=== PATIENT | female | born 1945 | race Caucasian/White ===

== ENCOUNTER 2022-02-20 23:14 | Observation (INO) ==
--- NOTE | 2022-02-20 23:22 | DR.AMS ---
HPI Time Seen Time Seen by Provider: 02/20/22 23:21 Complaint Cheif Complaint Doctors Comments: 76 y/o female brought in via EMS for altered mental status. Per EMS, family states it has been persisting all day. Pt is a poor historian. Admits to having a cough for a few days. Not spitting anything up. Doesn't know if she has had a fever. Has had some nausea, but no active vomiting. Has had some diarrhea past few days, not eating or drinking well. Pt with a h/o multiple myeloma, with right skull lytic lesions. Denies shortness of breath, dysuria. Has been having some low grade temps. COVID-19 Coronavirus risk:travel/contact w/high risk person: No Has patient experienced Coronavirus symptoms: Yes Coronavirus symptoms experienced: Fever and Coughing Reviewed Nurses Notes Reviewed: Yes Source History Provided: Patient, Family Member and EMS Mode of Arrival Mode of Arrival: EMS PMH PMH Past Medical History: Yes Past Medical History: Diabetes, Hypertension and Seizures Past Medical History Comment: + h/o multiple myeloma Past Surgical History: Yes Surgical History: Angioplasty/Stents, and Ortho Surgery Family History Family Medical History: Diabetes Mellitus, [place], Heart Failure and Hypertension Social History Does patient currently use any type of tobacco product: No Alcohol Use: None Do you use any recreational Drugs:: No ROS Review of Systems Constitutional: Fever and Weakness Eyes: No Symptoms Reported ENTM: No Symptoms Reported Respiratoy: Non-Productive Cough; negative Short of Breath Cardiovascular: No Symptoms Reported Gastrointestinal/Abdominal: Diarrhea and Nausea Genitourinary: No Symptoms Reported Neurological: Weakness Musculoskeletal: No Symptoms Reported Integumentary: No Symptoms Reported Hematologic/Lymphatic: No Symptoms Reported Psychiatric: No Symptoms Reported All Other Systems: Reviewed and Negative PE Vitals Vital Signs: Temp Pulse Pulse Resp BP BP Pulse Ox 02/21/22 03:30 72 120/58 92 L 02/21/22 03:15 73 95 02/21/22 03:00 74 74 114/85 95 02/21/22 02:45 78 93 L 02/21/22 02:30 74 115/63 93 L 02/21/22 02:15 76 94 L 02/21/22 02:01 79 145/58 92 L 02/21/22 02:00 80 93 L 02/21/22 01:45 80 94 L 02/21/22 01:31 81 154/63 95 02/21/22 01:30 81 93 L 02/21/22 01:15 80 93 L 02/21/22 01:00 77 163/99 95 02/21/22 00:45 82 95 02/21/22 00:34 82 162/65 96 02/20/22 23:15 99.0 F 78 20 157/71 95 11/24/21 21:05 123/54 General Limitations: Altered Mental Status General Appearance: Alert, In No Apparent Distress and Other (+ occasional loose cough) Head Head Exam: Normal Inspection Eyes Eye exam: PERRL and EOMI ENT ENT Exam: Mucous Membranes Moist TM/Canal Exam: Bilateral: Normal Nose Exam: Normal Nose Exam Throat Exam: Normal Inspection Neck Neck Exam: Normal Inspection and Full ROM; negative Tenderness Chest Chest Inspection: Normal Inspection Respiratory Respiratory Exam: negative Accessory Muscle Use and Respiratory Distress Respiratory Exam: Bilateral: Rhonchi (clear with cough) Cardiovascular Cardiovascular Exam: Regular Rate, Normal Rhythm and Normal Heart Sounds Abdominal Exam Abdominal Exam: Normal Inspection, Normal Bowel Sounds and Soft; negative Tenderness Extremities Extremities Exam: Normal Inspection; negative Tenderness and Edema Back Back Exam: Normal Inspection Neurological Neurological Exam: Alert, CN II-XII Intact and Other (+ disoriented to date, place); negative Motor Sensory Deficit Psychological Psychiatric Exam: Normal Affect Skin Skin Exam: Warm and Dry MDM Differential Diagnosis Metabolic: Dehydration and Hyponatremia Structural: CVA and SAH Infectious: Sepsis (bronchitis, pneumonia) and UTI COURSE Treatment Treatment: 76 y/o female sent in for altered mental status. PT not a good historian. Does have a loose cough. W/u initiated. Pt given IV fluids. 0322 - CT of the head with chronic lytic lesions of the R occipital area. No obvious ICH, swelling, shift. U/a without obvious infection. Is spilling some ketones. Has chronic pancytopenia, compared to recent labs, but slightly better. Chemistries with an elevated glucose of 233, and a Cr of 1.67. Last Cr 3 months ago was normal at 0.96. Pt with probable degree of dehydration. CXR with bilateral increased alveolar markings, radiology states no change from last CXR, ? 2 years ago?, and describes as chronic. Pt may have a developing pneumonia. Will cover with IV rocephin. Recommend admission for further evaluation and treatment. Will continue IV hydration, and cover her chest with IV Rocephin. ROR Labs Reviewed Laboratory Results Reviewed?: Yes Result Diagrams: 02/20/22 23:36 02/20/22 23:36 Laboratory: WBC 3.0 X10^3/uL (3.6-10.0) L 02/20/22 23:36 RBC 2.99 X10^6/uL (3.5-5.4) L 02/20/22 23:36 Hgb 10.0 g/dL (12.0-16.0) L 02/20/22 23:36 Hct 29.0 % (36.0-47.0) L 02/20/22 23:36 MCV 96.8 fL (80.0-100.0) 02/20/22 23:36 MCH 33.4 pg (27.0-34.0) 02/20/22 23:36 MCHC 34.5 g/dL (33.0-35.0) 02/20/22 23:36 RDW 14.9 % (11.6-16.5) 02/20/22 23:36 Plt Count 109 X10^3/uL (150.0-450.0) L 02/20/22 23:36 MPV 11.3 fL (7.4-11.0) H 02/20/22 23:36 Neut % (Auto) 84.2 % (42.0-75.0) H 02/20/22 23:36 Lymph % (Auto) 9.1 % (21.0-51.0) L 02/20/22 23:36 Emmons % (Auto) 6.3 % (0.0-13.0) 02/20/22 23:36 Eos % (Auto) 0.3 % (0.9-2.9) L 02/20/22 23:36 Baso % (Auto) 0.1 % (0.2-1.0) L 02/20/22 23:36 Neut # (Auto) 2.5 x10^3/uL (2.2-4.8) 02/20/22 23:36 Lymph # (Auto) 0.3 X10^3/uL (1.3-2.9) L 02/20/22 23:36 Emmons # (Auto) 0.2 x10^3/uL (0.3-0.8) L 02/20/22 23:36 Eos # (Auto) 0.0 x10^3/uL (0.0-0.2) 02/20/22 23:36 Baso # (Auto) 0.0 X10^3/uL (0.0-0.1) 02/20/22 23:36 Absolute Nucleated RBC 0.1 /100WBC 02/20/22 23:36 Sodium 133 mmol/L (136-145) L 02/20/22 23:36 Corrected Sodium 136 mmol/L (136-145) 02/20/22 23:36 Potassium 3.9 mmol/L (3.5-5.1) 02/20/22 23:36 Chloride 96 mmol/L (98-107) L 02/20/22 23:36 Carbon Dioxide 25.5 mmol/L (21-32) 02/20/22 23:36 BUN 49 mg/dL (7-18) H 02/20/22 23:36 Creatinine 1.67 mg/dL (0.55-1.02) H 02/20/22 23:36 Est GFR (MDRD) Af Amer 38 (>60) L 02/20/22 23:36 Est GFR (MDRD) Non-Af 32 (>60) L 02/20/22 23:36 Glucose 233 mg/dL (65-99) H 02/20/22 23:36 Calcium 8.8 mg/dL (8.5-10.1) 02/20/22 23:36 Corrected Calcium 9.6 mg/dL (8.5-10.1) 02/20/22 23:36 Total Bilirubin 0.60 mg/dL (0.2-1.0) 02/20/22 23:36 AST 17 Units/L (15-37) 02/20/22 23:36 ALT 8 Units/L (12-78) L 02/20/22 23:36 Alkaline Phosphatase 99 Units/L (46-116) 02/20/22 23:36 Total Protein 6.7 g/dL (6.4-8.2) 02/20/22 23:36 Albumin 3.0 g/dL (3.4-5.0) L 02/20/22 23:36 Globulin 3.7 g/dL (2.5-4.5) 02/20/22 23:36 Albumin/Globulin Ratio 0.8 Ratio (1.1-2.1) L 02/20/22 23:36 Specimen Type Catherized urine 02/21/22 00:06 Urine Color Pale yellow (YELLOW) 02/21/22 00:06 Urine Appearance Clear (CLEAR) 02/21/22 00:06 Urine pH 5.0 (5.0 - 8.0) 02/21/22 00:06 Ur Specific [place] 1.015 (1.000-1.030) 02/21/22 00:06 Urine Protein 2+ (NEGATIVE) 02/21/22 00:06 Urine Glucose (UA) 3+ (NEGATIVE) 02/21/22 00:06 Urine Ketones 2+ (NEGATIVE) 02/21/22 00:06 Urine Blood 1+ (NEGATIVE) 02/21/22 00:06 Urine Nitrite Negative (NEGATIVE) 02/21/22 00:06 Urine Bilirubin Negative (NEGATIVE) 02/21/22 00:06 Urine Urobilinogen Normal (NORMAL) 02/21/22 00:06 Ur Leukocyte Esterase Negative (NEGATIVE) 02/21/22 00:06 Urine RBC None seen /HPF (0-3) 02/21/22 00:06 Urine WBC None seen /HPF (0-5) 02/21/22 00:06 Ur Squamous Epith Cells Rare /HPF (NEGATIVE) 02/21/22 00:06 Amorphous Sediment 1+ /HPF (NEGATIVE) 02/21/22 00:06 Urine Bacteria Negative /HPF (NEGATIVE) 02/21/22 00:06 Ur Culture Indicated? No/not indicated 02/21/22 00:06 Other Results Comments: see comments under "Course" Opioid Opioid Risk Tool Age (Jose box if 16-45): No History of Preadolescent Sexual Abuse: No Total: 0 Total Score Risk Category: Low Risk Copyright: David TIRADO predicting aberrant behaviors Diagnosis Discharge Problem: Dehydration Altered mental status Qualifiers: Altered mental status type: disorientation Qualified Code(s): R41.0 - Disorientation, unspecified ADDITIONAL NOTES Additional Notes Additional Notes: Covid screen done for pt being admitted. Covid + per lab.
[2022-02-20] MEDS ORDERED: NS 500 ML IV 500 ML IV ONE (23:23)
[2022-02-20 23:31] VITALS: BMI 23.3
[2022-02-20] MEDS ORDERED: NS 1,000 ML IV 1,000 ML ONE (23:31)
[2022-02-20 23:49] LABS: BASOPHILS % (AUTO) 0.1 % (0.2-1.0); EOSINOPHILS % (AUTO) 0.3 % (0.9-2.9); LYMPHOCYTES # (AUTO) 0.3 X10^3/uL (1.3-2.9); LYMPHOCYTES % (AUTO) 9.1 % (21.0-51.0); MEAN CORPUSCULAR HEMOGLOBIN 33.4 pg (27.0-34.0); MEAN CORPUSCULAR HGB CONC 34.5 g/dL (33.0-35.0); MEAN CORPUSCULAR VOLUME 96.8 fL (80.0-100.0); MEAN PLATELET VOLUME 11.3 fL (7.4-11.0); MONOCYTES # (AUTO) 0.2 x10^3/uL (0.3-0.8); MONOCYTES % (AUTO) 6.3 % (0.0-13.0); NEUTROPHILS # (AUTO) 2.5 x10^3/uL (2.2-4.8); NEUTROPHILS % (AUTO) 84.2 % (42.0-75.0); RED BLOOD COUNT 2.99 X10^6/uL (3.5-5.4); RED CELL DISTRIBUTION WIDTH 14.9 % (11.6-16.5)
--- NOTE | 2022-02-21 00:16 | RAD ---
STUDY: FRONTAL VIEW CHESTCOMPARISON: 08/07/2020HISTORY: PT IN ED VIA STRETCHER PER [facility] WITH C/O AMS AND FEVER. PER DAUGHTER PT HAS BEEN CONFUSED FOR SEVERAL DAYS AND FELL MONDAY BUT REFUSED ER VISITFINDINGS:Multifocal alveolar airspace disease remains in the bilateral lower lung zonesNo focal consolidation is seen.The heart size is within normal limits.The mediastinum is unremarkable.There is no evidence of pleural effusion or gross pneumothorax.The trachea is midline.IMPRESSION:Multifocal alveolar airspace disease remains in the bilateral lower lung zones. This does not appear significantly changed from the prior exam and would be classified as chronic airspace disease.Electronically signed by: João Recinos (February 21, 2022 00:15:02)
--- NOTE | 2022-02-21 00:33 | CT ---
HISTORYPT IN ED VIA STRETCHER [facility] WITH C/O AMS AND FEVER. PER DAUGHTER PT HAS BEEN CONFUSED FOR SEVERAL DAYS AND FELL MONDAY BUT PT REFUSEDSTUDYBRAIN W/O CONCOMPARISONFebruary 2021.TECHNIQUEMultiple axial images of the head without contrast. Dose reduction techniques including Automated Exposure Control (AEC) and adjustment of mA and kV were utilized.Contrast: NoneFINDINGSBRAIN PARENCHYMA: No acute hemorrhage, infarct, mass, or mass effect.Ervin-white differentiation is maintained.Scattered white matter chronic small vessel ischemic changes.VENTRICLES/EXTRA-AXIAL SPACES: The cortical sulci and cisterns are prominent. No hydrocephalus or extra-axial fluid collections. There is extensive atherosclerotic disease of the vertebral arteries and cavernous carotid arteries.EXTRACRANIAL STRUCTURES: There is a moth eaten appearance and lytic lesions to the right parietal calvarium. This is consistent with the patient's known multiple myeloma. Visualized paranasal sinuses and mastoids reveals a prominent polyp versus retention cyst in the right maxillary sinus. There is evidence for right globe rupture or theses bulb E type changes. There is partial scleral banding of the superior lateral aspect of the left globe.IMPRESSIONMoth-eaten appearance and lytic lesions of the right high parietal convexity of the calvarium. This is consistent with the patient's known multiple myeloma. This could be the source of the patient's fever and altered mental status. An MRI of the brain with postcontrast imaging is recommended.Electronically signed by: Padma Garrett (February 21, 2022 00:31:58)
[2022-02-21 00:54] LABS: BILIRUBIN,URINE NEGATIVE (NEGATIVE); BLOOD/HEMOGLOBIN,URINE 1+ (NEGATIVE); GLUCOSE, URINE 3+ (NEGATIVE); KETONES,URINE 2+ (NEGATIVE); LEUKOCYTE ESTERASE ,URINE NEGATIVE (NEGATIVE); NITRITES,URINE NEGATIVE (NEGATIVE); PROTEIN,URINE 2+ (NEGATIVE); UROBILINOGEN,URINE NORMAL (NORMAL)
[2022-02-21 01:01] LABS: CALCIUM 8.8 mg/dL (8.5-10.1); CARBON DIOXIDE 25.5 mmol/L (21-32); CREATININE 1.67 mg/dL (0.55-1.02)
[2022-02-21 01:05] LABS: APPEARANCE,URINE CLEAR (CLEAR); COLOR,URINE PALE YELLOW (YELLOW); RBC,URINE NONE SEEN /HPF (0-3)
[2022-02-21 01:06] LABS: BACTERIA,URINE NEGATIVE /HPF (NEGATIVE); SQUAMOUS EPITHELIAL CELL,UR RARE /HPF (NEGATIVE)
[2022-02-21] MEDS ORDERED: ROCEPHIN VIAL 1 GRAM 1 G in NS 100 ML IV 100 ML IV SCH ×2 (03:14→05:00)
[2022-02-21] MEDS ORDERED: ROCEPHIN VIAL 1 GRAM ONE (03:17)
[2022-02-21] MEDS ORDERED: NS 100 ML IV 100 ML ONE (03:17)
[2022-02-21] MEDS ORDERED: ULTRAM PO PRN (04:20)
[2022-02-21] MEDS: D5 NS 1,000 ML IV 1,000 ML IV SCH ×2 (04:37→18:14)
[2022-02-21 05:13] LABS: COR CA(FOR HYPOALB) 9.6 mg/dL (8.5-10.1); TOTAL PROTEIN 6.7 g/dL (6.4-8.2)
[2022-02-21 06:15] LABS: CALCIUM 8.1 mg/dL (8.5-10.1); CARBON DIOXIDE 26.1 mmol/L (21-32); CREATININE 1.26 mg/dL (0.55-1.02)
[2022-02-21] MEDS ORDERED: POTASSIUM CHL 60 MEQ/NS 0.45% 500 ML IV PRN (06:21)
[2022-02-21] MEDS ORDERED: K-RIDER 10 MEQ/NS 100 ML 10 MEQ/100 ML BAG IV PRN (06:21)
[2022-02-21] MEDS ORDERED: KLOR-CON PO PRN (06:21)
[2022-02-21] MEDS ORDERED: POTASSIUM CHL 40 MEQ/NS 0.45% 500 ML IV PRN (06:21)
[2022-02-21] MEDS ORDERED: MICRO K EXTEN CAP 10 MEQ PO PRN (06:21)
[2022-02-21] MEDS ORDERED: POTASSIUM CHLORIDE LIQ 20 MEQ UDC PO PRN (06:21)
[2022-02-21 06:25] LABS: BASOPHILS % (AUTO) 0.2 % (0.2-1.0); EOSINOPHILS % (AUTO) 0.4 % (0.9-2.9); HEMATOCRIT 25.6 % (36.0-47.0); LYMPHOCYTES # (AUTO) 0.2 X10^3/uL (1.3-2.9); MEAN CORPUSCULAR HEMOGLOBIN 34.1 pg (27.0-34.0); MEAN CORPUSCULAR HGB CONC 35.2 g/dL (33.0-35.0); MEAN PLATELET VOLUME 11.4 fL (7.4-11.0); MONOCYTES # (AUTO) 0.2 x10^3/uL (0.3-0.8); MONOCYTES % (AUTO) 9.6 % (0.0-13.0); NEUTROPHILS # (AUTO) 1.9 x10^3/uL (2.2-4.8); NEUTROPHILS % (AUTO) 79.8 % (42.0-75.0); RED BLOOD COUNT 2.64 X10^6/uL (3.5-5.4); RED CELL DISTRIBUTION WIDTH 14.7 % (11.6-16.5); WHITE BLOOD COUNT 2.3 X10^3/uL (3.6-10.0)
[2022-02-21 07:16] LABS: BAND NEUTROPHILS % 2 % (0-10); METAMYELOCYTES % 2; PLATELET MORPHOLOGY COMMENT NORMAL (NORMAL)
[2022-02-21] MEDS: COREG TAB 12.5 MG PO SCH ×2 (08:57→20:16)
[2022-02-21] MEDS: HYZAAR 50/12.5 MG PO SCH (08:58)
[2022-02-21] MEDS: LASIX PO SCH (08:59)
[2022-02-21] MEDS: MICRO K EXTEN CAP 10 MEQ PO SCH (08:59)
[2022-02-21] MEDS ORDERED: LANTUS SC SCH ×2 (09:00→11:00)
[2022-02-21] MEDS ORDERED: PATIENT'S HOME MEDICATION (Losartan-Hydrochlorothiazide 100-25 mg tablet) PO SCH (09:00)
[2022-02-21] MEDS ORDERED: LENALIDOMIDE 10 MG PO SCH (09:00)
[2022-02-21] MEDS: SYNTHROID 112 mcg TAB PO SCH (09:06)
[2022-02-21] MEDS: LEVAQUIN PREMIX IV 750 MG 750 MG/150 ML BAG IV SCH (12:00)
[2022-02-21] MEDS: ZINC SULFATE PO SCH (12:00)
[2022-02-21] MEDS: VITAMIN C PO SCH ×3 (12:00→22:00)
--- NOTE | 2022-02-21 13:09 | DR.H&P ---
H&P - History & Physical for Day of: H&P Date: 02/21/22 - Chief Complaint Chief Complaint: AMS, WEAKNESS, DECREASED ORAL INTAKE, COUGH, FEVER - History of Present Illness History of Present Illness: IS A 76 YEAR OLD PATIENT OF OURS. SHE PRESENTED TO THE ER VIA EMS ON 02/20/22 WITH FAMILY REPORTING THAT PATIENT HAS HAD ALTERED MENTAL STATUS SINCE AWAKENING IN THE MORNING. PATIENT IS A POOR HISTORIAN, BUT DAUGHTER REPORTS THAT PATIENT HAS HAD A NON-PRODUCTIVE COUGH AND LOW GRADE TEMPS FOR THE PAST 2-3 DAYS. PATIENT HAS REPORTEDLY HAD SOME NAUSEA AND DIARRHEA FOR THE PAST FEW DAYS, BUT NO ACTIVE VOMITING. SHE HAS HAD DECREASED ORAL INTAKE. SHE HAS A PMH OF MULTIPLE MYELOMA WITH RIGHT SKULL LYTIC LESIONS, DM II, HTN, AND SEIZURE DISORDER. SHE HAS HAD CARDIAC STENTS AND C- SECTIONS. AUSCULTATION OF LUNG MIRELES REVEALED BILATERAL RHONCHI THROUGHOUT. ON ARRIVAL, VITALS WERE 99.0-78-20-95%-157/71. LABS WERE OBTAINED. WBC 3.0, RBC 2.99, HGB 10.0, HCT 29.0, PLT COUNT 109, SODIUM 133, CHLORIDE 96, BUN 49, CREATININE 1.67, GLUCOSE 233, CALCIUM 8.1, MAGNESIUM 1.3, ALT 8, ALBUMIN 3.0. URINALYSIS OBTAINED AND WAS UNREMARKABLE. COVID-[address] WAS OBTAINED AND REVEALED: Moth-eaten appearance and lytic lesions of the right high parietal convexity of the calvarium. This is consistent with the patient's known multiple myeloma. This could be the source of the patient's fever and altered mental status. An MRI of the brain with post-contrast imaging is recommended. A CHEST XRAY WAS OBTAINED AND REVEALED: Multifocal alveolar airspace disease remains in the bilateral lower lung zones. This does not appear significantly changed from the prior exam and would be classified as chronic airspace disease. IN THE ER, HE WAS GIVEN A NORMAL SALINE 500 ML BOLUS AND ROCEPHIN 1G IV X 1. SHE WAS ADMITTED TO THE HOSPITAL OBSERVATION STATUS FOR FURTHER EVALUATION AND TX OF DEHYDRATION, AMS, COVID-19. SHE WAS STARTED ON D5NS AT 80 ML/HR, ALBUTEROL NEBS QID, BROVANA INHALER BID, LEVAQUIN 750MG IV Q48H, OTBS ACHS, HUMULIN R SLI DING SCALE, ASCORBIC ACID 500MG PO Q6H, ZINC SULFATE 220MG PO DAILY, AND HER HOME MEDICATIONS WERE RESUMED. WE WILL OBTAIN A BRAIN MRI WITH POST CONTRAST IMAGING TODAY PER RADIOLOGIST RECOMMENDATIONS. OTHERWISE, WE PLAN TO FOLLOW-UP WITH AM LABS AND CONTINUE TO MONITOR. TIME SPENT ON CLINICAL ASSESSMENT, REVIEWING LABS AND IMAGING, DECISION MAKING, AND DOCUMENTATION GREATER THAN 75 MINUTES. - Past Medical History Past Medical History: Hypertension, Diabetes, Seizures - Past Surgical History Surgical History: Angioplasty/Stents, , Ortho Surgery - Family History Family Medical History: Diabetes Mellitus, [place], Heart Failure, Hypertension - Social History Does patient currently use any type of tobacco product: No Have you used tobacco products in the last 12 months: No Type of Tobacco Use: None Does any household member use tobacco: No Alcohol Use: None Drug Use: None - Medications Home Medications: oxycodone Allergy (Verified 08/07/20 21:00) Sulfa (Sulfonamide Antibiotics) [SULFA] Allergy (Verified 11/18/21 11:17) CONTINUE taking the following medications carvedilol 12.5 mg PO BID 02/21/22 [History] furosemide 40 mg PO DAILY 02/21/22 [History] insulin glargine [Lantus Solostar U-100 Insulin] 35 unit SUBCUT DAILY 02/21/22 [History] insulin lispro [Humalog KwikPen Insulin] 0 sliding scale dose SUBCUT ACHS PRN 02/21/22 [History] lenalidomide [Revlimid] 10 mg PO DAILY 02/21/22 [History] levothyroxine 112 mcg PO DAILY 02/21/22 [History] losartan-hydrochlorothiazide 1 tab PO DAILY 02/21/22 [History] potassium chloride 10 meq PO DAILY 02/21/22 [History] tramadol 50 mg PO TID PRN 02/21/22 [History] - Review of Systems Constitutional: Fever, Chills, Weakness Eyes: No Symptoms Reported ENT: No Symptoms Reported Respiratory: See HPI, Cough Cardiovascular: No Symptoms Reported Gastrointestinal: See HPI, Nausea, Diarrhea. denies: Vomiting Musculoskeletal: No Symptoms Reported Skin: No Symptoms Reported Neurological: See HPI, Weakness, Confusion - Physical Exam Vital Signs: Temperature 98.8 F Pulse Rate [Left] 69 Pulse Rate 71 Respiratory Rate 20 Blood Pressure [Left Arm] 118/59 Blood Pressure 128/59 O2 Sat by Pulse Oximetry 98 Oriented: Not Oriented Eyes: Normal Ear: Normal Nose: Normal Throat: Normal Respiratory: Rhonchi Throughout Cardiovascular: Normal : Normal Auscultation: Bowel Sounds: Normal Palpation: Normal Tenderness: Normal Skin: Decreased Turgur Musculoskeletal: Normal Psychiatric: Normal Mood Description: Calm Affect: Normal Speech Pattern: Inappropriate - Assessment/Plan (1) Dehydration Status: Acute Plan: D5NS AT 80 ML/HR, ALBUTEROL NEBS QID, BROVANA INHALER BID, LEVAQUIN 750MG IV Q48H, OTBS ACHS, HUMULIN R SLIDING SCALE, ASCORBIC ACID 500MG PO Q6H, ZINC SULFATE 220MG PO DAILY, AND HER HOME MEDICATIONS WERE RESUMED. (2) Pneumonia due to COVID-19 virus Status: Acute (3) Altered mental status Qualifiers: Altered mental status type: disorientation Qualified Code(s): R41.0 - Disorientation, unspecified Status: Acute Plan: WE WILL OBTAIN A BRAIN MRI WITH POST CONTRAST IMAGING TODAY PER RADIOLOGIST RECOMMENDATIONS. (4) History of multiple myeloma Status: Chronic - Allergies Allergies/Adverse Reactions: Allergies Allergy/AdvReac Type Severity Reaction Status Date / Time oxycodone Allergy Verified 08/07/20 21:00 Sulfa (Sulfonamide Allergy Verified 11/18/21 11:17 Antibiotics) [SULFA]
--- NOTE | 2022-02-21 13:42 | MRI ---
HISTORYMULTIPLE MYELOMA, DEHYDRATION, AMSSTUDYBRAIN W W/O CONCOMPARISONHead CT dated 02/20/2022TECHNIQUEMultiplanar multi sequences images through the brain were performed with and without contrastFINDINGSThe ventricles are normal in size and symmetric. There is no evidence of an acute infarct. No focal areas of restricted diffusion. There is no evidence of intra or extra-axial fluid collections, there is normal midline anatomy. No sellar masses. The cervicocranial junction is unremarkable, no nasopharyngeal massesAfter, the administration of contrast there is no evidence of abnormal intraparenchymal enhancement. The main arterial and venous flow voids are present, no abnormal signal in the mastoid cells.There is an abnormal right ocular globe there appears small with irregular area in the posterior chamber as well as an inferior area of low signal on the weighted T2 weighted images probably hemorrhage. No abnormal enhancement at the level.FLAIR images demonstrate mild patchy periventricular white matter changes with few subcortical areas of high signal.There is a focal irregular patchy area of enhancement in the superior parietal bone that correspond with an irregular lytic lesion on prior CT. There is an enhancing mass like area extending at the level of the defect better seen in the coronal images measuring in length 5.3 centimeters and in thickness 8 millimeters, there is mild mass effect in the superior sagittal sinus without compression, there is a mucous retention cysts in the left maxillary sinus.IMPRESSIONFocal aggressive left superior parietal bone lesion near to the midline with an associated enhancing soft tissue area without mass effect in the brain, no evidence of restricted diffusion to suggest and abscess formation differential include multiple myeloma lesion versus bone metastasis. Clinical correlation is recommended.No acute infarct, no abnormal intraparenchymal enhancing lesions.Abnormal right ocular globe with old hemorrhagePeriventricular and subcortical white matter changes likely microvascular ischemic disease.Electronically signed by: Leandra Daniel (February 21, 2022 13:40:52)
[2022-02-21] MEDS: BROVANA IN SCH ×2 (16:40→21:07)
[2022-02-21] MEDS: PROVENTIL NEB TX 0.083% 2.5MG/ 3ML NEB SCH ×3 (16:41→21:08)
[2022-02-21] MEDS: K-DUR TAB 20 MEQ PO PRN (17:10)
[2022-02-21] MEDS: MAGNESIUM SULFATE 1 GRAM/100 mL PREMIX 1 G/100 ML BAG IV PRN ×4 (17:11→23:45)
[2022-02-22] MEDS ORDERED: ROCEPHIN VIAL 1 GRAM 1 G in NS 100 ML IV 100 ML IV SCH (05:00)
[2022-02-22] MEDS ORDERED: D50W ABBOJECT SYR IV ONE (05:38)
[2022-02-22] MEDS: D5 NS 1,000 ML IV 1,000 ML IV SCH ×2 (05:39→19:05)
[2022-02-22] MEDS: VITAMIN C PO SCH ×4 (05:39→22:01)
[2022-02-22] MEDS ORDERED: D50W ABBOJECT SYR ONE ×2 (05:41→05:44)
--- NOTE | 2022-02-22 06:05 | RAD ---
HISTORYShortness of breathSTUDYChest AP [id number]/2022FINDINGSThe heart is mildly enlarged. No definite congestive heart failure is noted. The aorta is calcified. The javed are normal. Lungs are well inflated. Bibasilar infiltrates are improved. Upper lung rivera remain clear no pleural effusion or pneumothorax identified. Bony thorax is unremarkable.IMPRESSIONMild cardiomegaly without congestive heart failureImproving bibasilar infiltratesElectronically signed by: RODGER SANCHEZ (February 22, 2022 06:05:00)
[2022-02-22 06:08] LABS: BASOPHILS % (AUTO) 0.1 % (0.2-1.0); HEMATOCRIT 25.2 % (36.0-47.0); LYMPHOCYTES # (AUTO) 0.3 X10^3/uL (1.3-2.9); LYMPHOCYTES % (AUTO) 8.2 % (21.0-51.0); MEAN CORPUSCULAR HEMOGLOBIN 34.3 pg (27.0-34.0); MEAN CORPUSCULAR HGB CONC 35.8 g/dL (33.0-35.0); MEAN CORPUSCULAR VOLUME 95.9 fL (80.0-100.0); MONOCYTES # (AUTO) 0.5 x10^3/uL (0.3-0.8); MONOCYTES % (AUTO) 12.2 % (0.0-13.0); NEUTROPHILS # (AUTO) 3.1 x10^3/uL (2.2-4.8); NEUTROPHILS % (AUTO) 78.5 % (42.0-75.0); RED BLOOD COUNT 2.63 X10^6/uL (3.5-5.4); RED CELL DISTRIBUTION WIDTH 14.5 % (11.6-16.5); WHITE BLOOD COUNT 3.9 X10^3/uL (3.6-10.0)
[2022-02-22 06:28] LABS: BLOOD UREA NITROGEN 21 mg/dL (7-18); CALCIUM 7.9 mg/dL (8.5-10.1); CARBON DIOXIDE 25.3 mmol/L (21-32); CHLORIDE 102 mmol/L (98-107); CREATININE 0.91 mg/dL (0.55-1.02); SODIUM 137 mmol/L (136-145); eGFR NON BLACK RACES > 60 (>60)
[2022-02-22 06:29] LABS: CKMB % 1.6 % (<4); CREATINE KINASE 69 Units/L (26-192); CREATINE KINASE MB 1.1 ng/mL (0-4.0); MAGNESIUM 2.3 mg/dL (1.7-2.9)
[2022-02-22] MEDS: K-DUR TAB 20 MEQ PO PRN ×2 (06:48→15:45)
[2022-02-22] MEDS ORDERED: REMDESIVIR 200 MG in NS 250 ML IV 250 ML IV ONE (08:52)
[2022-02-22] MEDS ORDERED: LANTUS SC SCH ×2 (09:00→12:00)
[2022-02-22] MEDS ORDERED: PHARMACY CONSULT - LOVENOX XX SCH (09:00)
[2022-02-22] MEDS ORDERED: PHARMACY CONSULT - IVERMECTIN XX SCH (09:00)
[2022-02-22] MEDS: PROVENTIL NEB TX 0.083% 2.5MG/ 3ML NEB SCH ×4 (09:01→20:45)
[2022-02-22] MEDS: BROVANA IN SCH ×2 (09:01→20:45)
[2022-02-22] MEDS: COREG TAB 12.5 MG PO SCH ×2 (10:44→22:01)
[2022-02-22] MEDS: SOLU-Medrol 40 MG VIAL IVP SCH ×3 (10:45→22:03)
[2022-02-22] MEDS: LUVOX PO SCH ×2 (10:45→21:26)
[2022-02-22] MEDS: LASIX PO SCH (10:45)
[2022-02-22] MEDS: MICRO K EXTEN CAP 10 MEQ PO SCH (10:45)
[2022-02-22] MEDS: PEPCID TAB 40 MG PO SCH ×2 (10:45→22:01)
[2022-02-22] MEDS: HYZAAR 50/12.5 MG PO SCH (10:45)
[2022-02-22] MEDS: IVERMECTIN PO SCH (10:46)
[2022-02-22] MEDS: SYNTHROID 112 mcg TAB PO SCH (10:46)
[2022-02-22] MEDS: VITAMIN D3 125 mcg (5,000 UNITS) PO SCH (10:46)
[2022-02-22] MEDS: VITAMIN A PO SCH (10:46)
[2022-02-22] MEDS: ELIQUIS PO SCH ×2 (10:46→21:26)
[2022-02-22] MEDS: ZINC SULFATE PO SCH (10:47)
--- NOTE | 2022-02-22 12:56 | PCM.PROG ---
Progress Note - Progress Note for Day of Date of Exam: 02/22/22 - Subjective Subjective: IS CURRENTLY OBSERVATION STATUS FOR TREATMENT OF DEHYDRATION, PNEUMONIA DUE TO COVID-19, AND AMS. SHE HAS A PMH OF MULTIPLE MYELOMA WITH RIGHT SKULL LYTIC LESION. SHE CONTINUES TO HAVE A NON-PRODUCTIVE COUGH AND WEAKNESS. HER APPETITE HAS BEEN DECREASED, BUT SHE DENIES NAUSEA OR VOMITING THIS MORNING. THE HIGHEST THAT HER TEMPERATUR GOT THROUGHOUT THE NIGHT WAS 99.8. SHE HAS BEEN ON ROOM AIR. STAFF AND FAMILY DENY EVENTS THROUGHOUT THE NIGHT. ON EXAMINATION TODAY, HEART IS REGULAR IN RATE AND RHYTHM. BILATERAL LUNGS NOTED WITH DIMINISHED LUNG SOUNDS THROUGHOUT. ABDOMEN IS ROUND, SOFT, AND NON-TENDER WITH NORMAL BOWEL SOUNDS NOTED IN ALL QUADRANTS. TRACE LOWER EXTREMITY EDEMA NOTED. HER VITALS THIS MORNING ARE: 98.1-69-20-98%-156/67. LABS WERE OBTAINED. WBC 3.9, RBC 2.63, HGB 9.0, HCT 25.2, PLT COUNT 89, D-DIMER 11.84, SODIUM 137, POTASSIUM 2.8, CHLORIDE 102, BUN 21, CREATININE 0.91, GLUCOSE 124, CALCIUM 7.9, MAGNESIUM 2.3, CRP 68.30, BNP 791. STAFF REPORTS THAT SHE DID HAVE A DROP IN GLUCOSE TO 45 ON MORNING LABS TODAY. SHE HAD LANTUS 28 UNITS LAST NIGHT. A CHEST XRAY WAS OBTAINED THIS MORNING AND REVEALED: Mild cardiomegaly without congestive heart failure. Improving bibasilar infiltrates. A BRAIN MRI WAS OBTAINED YESTERDAY AND REVEALED: Focal aggressive left superior parietal bone lesion near to the midline with an associated enhancing soft tissue area without mass effect in the brain, no evidence of restricted diffusion to suggest and abscess formation differential include multiple myeloma lesion versus bone metastasis. Clinical correlation is recommended. No acute infarct, no abnormal intraparenchymal enhancing lesions. Abnormal right ocular globe with old hemorrhage. 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 WE WILL PASS THESE RESULTS ON TO HER ONCOLOGIST. SHE IS CURRENTLY RECEIVING D5NS AT 80 ML/HR, REMDESIVIR 100MG IV DAILY, ALBUTEROL NEBS QID, BROVANA INHALER BID, LEVAQUIN 750MG IV Q48H, OTBS ACHS, HUMULIN R SLIDING SCALE, ASCORBIC ACID 500MG PO Q6H, ZINC SULFATE 220MG PO DAILY, AND HER HOME MEDICATIONS WERE RESUMED. TODAY, WE WILL ADD ELIQUIS 5MG PO BID, FLUVOXAMINE 50MG PO BID, IVERMECTIN 30MG PO DAILY, SOLU-MEDROL 40MG IV Q8H, AND VITAMIN A 10,000 UNITS PO DAILY. WE WILL DECREASE LANTUS TO 10 UNITS SQ DAILY. OTHERWISE, WE PLAN TO FOLLOW-UP WITH AM LABS AND CHEST XRAY AND CONTINUE TO MONITOR. TIME SPENT ON CLINICAL ASSESSMENT, REVIEWING LABS AND IMAGING, DECISION MAKING, AND DOCUMENTATION GREATER THAN 45 MINUTES. - Past Medical Family Social History Past Med/Fam/Surg Hx: No changes since H&P Allergies: Allergies oxycodone Allergy (Verified 08/07/20 21:00) Sulfa (Sulfonamide Antibiotics) [SULFA] Allergy (Verified 11/18/21 11:17) - Review of Systems ROS: No change since H&P - Vital Signs and I&O's Vital Signs: Temperature 98.2 F Pulse Rate [Left] 66 Pulse Rate 66 Respiratory Rate 20 Blood Pressure [Left Arm] 180/75 Blood Pressure 128/59 O2 Sat by Pulse Oximetry 97 Intake and Output: Intake & Output 02/20/22 02/21/22 02/22/22 02/23/22 11:59 11:59 11:59 11:59 Intake Total 660 / 660 2119 Balance 660 / 660 2119 - Physical Exam Oriented: Person Eyes: Normal Ear: Normal Nose: Normal Throat: Normal Respiratory: Generalized, Diminished Cardiovascular: Normal : Normal Auscultation: Bowel Sounds: Normal Palpation: Normal Tenderness: Normal Skin: Decreased Turgur Musculoskeletal: Normal Psychiatric: Normal Mood Description: Calm Affect: Normal Speech Pattern: Clear, Appropriate - Laboratory and Diagnostics Result Diagrams: 02/22/22 05:24 02/22/22 08:50 Labs: Laboratory WBC 3.9 X10^3/uL (3.6-10.0) 02/22/22 05:24 RBC 2.63 X10^6/uL (3.5-5.4) L 02/22/22 05:24 Hgb 9.0 g/dL (12.0-16.0) L 02/22/22 05:24 Hct 25.2 % (36.0-47.0) L 02/22/22 05:24 MCV 95.9 fL (80.0-100.0) 05/10/22 05:24 MCH 34.3 pg (27.0-34.0) H 02/22/22 05:24 MCHC 35.8 g/dL (33.0-35.0) H 02/22/22 05:24 RDW 14.5 % (11.6-16.5) 02/22/22 05:24 Plt Count 89 X10^3/uL (150.0-450.0) L 02/22/22 05:24 Plt Count Comment Decreased (ADEQUATE) A 02/21/22 05:23 MPV 11.0 fL (7.4-11.0) 02/22/22 05:24 Neut % (Auto) 78.5 % (42.0-75.0) H 02/22/22 05:24 Lymph % (Auto) 8.2 % (21.0-51.0) L 02/22/22 05:24 [place] % (Auto) 12.2 % (0.0-13.0) 02/22/22 05:24 Eos % (Auto) 1.0 % (0.9-2.9) 02/22/22 05:24 Baso % (Auto) 0.1 % (0.2-1.0) L 02/22/22 05:24 Neut # (Auto) 3.1 x10^3/uL (2.2-4.8) 02/22/22 05:24 Lymph # (Auto) 0.3 X10^3/uL (1.3-2.9) L 02/22/22 05:24 [place] # (Auto) 0.5 x10^3/uL (0.3-0.8) 02/22/22 05:24 Eos # (Auto) 0.0 x10^3/uL (0.0-0.2) 02/22/22 05:24 Baso # (Auto) 0.0 X10^3/uL (0.0-0.1) 02/22/22 05:24 Absolute Nucleated RBC 0.1 /100WBC 02/22/22 05:24 Total Counted 50 02/21/22 05:23 Neutrophils % (Manual) 82 % (39-76) H 02/21/22 05:23 Band Neutrophils % 2 % (0-10) 02/21/22 05:23 Lymphocytes % (Manual) 12 % (13-43) L 02/21/22 05:23 Monocytes % (Manual) 2 % (4-9) L 02/21/22 05:23 Metamyelocytes % 2 02/21/22 05:23 Plt Morphology Comment Normal (NORMAL) 02/21/22 05:23 RBC Morphology Normal (NORMAL) 02/21/22 05:23 ESR 47 MM/HOUR (0-20) H 02/21/22 11:36 D-Dimer 11.84 ug/ml (0.0-0.57) H* 02/22/22 05:24 Sodium 137 mmol/L (136-145) 02/22/22 05:24 Corrected Sodium TNP 02/22/22 05:24 Potassium 3.3 mmol/L (3.5-5.1) L 02/22/22 08:50 Chloride 102 mmol/L (98-107) 02/22/22 05:24 Carbon Dioxide 25.3 mmol/L (21-32) 02/22/22 05:24 BUN 21 mg/dL (7-18) H 02/22/22 05:24 Creatinine 0.91 mg/dL (0.55-1.02) 02/22/22 05:24 Est GFR (MDRD) Af Amer > 60 (>60) 02/22/22 05:24 Est GFR (MDRD) Non-Af > 60 (>60) 02/22/22 05:24 Glucose 45 mg/dL (65-99) L* 02/22/22 05:24 POC Glucose (mg/dL) 124 mg/dL (65-99) H 02/22/22 12:27 Calcium 7.9 mg/dL (8.5-10.1) L 02/22/22 05:24 Corrected Calcium 9.6 mg/dL (8.5-10.1) 02/20/22 23:36 Magnesium 2.3 mg/dL (1.7-2.9) 02/22/22 05:24 Total Bilirubin 0.60 mg/dL (0.2-1.0) 02/20/22 23:36 AST 17 Units/L (15-37) 02/20/22 23:36 ALT 8 Units/L (12-78) L 02/20/22 23:36 Alkaline Phosphatase 99 Units/L (46-116) 02/20/22 23:36 Creatine Kinase 69 Units/L (26-192) 02/22/22 05:24 CK-MB (CK-2) 1.1 ng/mL (0-4.0) 02/22/22 05:24 CK/CKMB % Calc 1.6 % (<4) 02/22/22 05:24 Troponin I High Sens 39.3 ng/L (4.0-60.0) 02/22/22 05:24 C-Reactive Protein 68.30 mg/L (0-3.0) H 02/22/22 05:24 B-Natriuretic Peptide 791 pg/mL (0-79) H* 02/22/22 05:24 Total Protein 6.7 g/dL (6.4-8.2) 02/20/22 23:36 Albumin 3.0 g/dL (3.4-5.0) L 02/20/22 23:36 Globulin 3.7 g/dL (2.5-4.5) 02/20/22 23:36 Albumin/Globulin Ratio 0.8 Ratio (1.1-2.1) L 02/20/22 23:36 Specimen Type Catherized urine 02/21/22 00:06 Urine Color Pale yellow (YELLOW) 02/21/22 00:06 Urine Appearance Clear (CLEAR) 02/21/22 00:06 Urine pH 5.0 (5.0 - 8.0) 02/21/22 00:06 Ur Specific [place] 1.015 (1.000-1.030) 02/21/22 00:06 Urine Protein 2+ (NEGATIVE) 02/21/22 00:06 Urine Glucose (UA) 3+ (NEGATIVE) 02/21/22 00:06 Urine Ketones 2+ (NEGATIVE) 02/21/22 00:06 Urine Blood 1+ (NEGATIVE) 02/21/22 00:06 Urine Nitrite Negative (NEGATIVE) 02/21/22 00:06 Urine Bilirubin Negative (NEGATIVE) 02/21/22 00:06 Urine Urobilinogen Normal (NORMAL) 02/21/22 00:06 Ur Leukocyte Esterase Negative (NEGATIVE) 02/21/22 00:06 Urine RBC None seen /HPF (0-3) 02/21/22 00:06 Urine WBC None seen /HPF (0-5) 02/21/22 00:06 Ur Squamous Epith Cells Rare /HPF (NEGATIVE) 02/21/22 00:06 Amorphous Sediment 1+ /HPF (NEGATIVE) 02/21/22 00:06 Urine Bacteria Negative /HPF (NEGATIVE) 02/21/22 00:06 Ur Culture Indicated? No/not indicated 02/21/22 00:06 SARS-CoV-2 (PCR) Positive (NEGATIVE) A 02/21/22 12:37 SARS-CoV-2 Antigen Positive (NEGATIVE) A 02/21/22 16:15 - Plan (1) Dehydration Status: Acute Plan: D5NS AT 80 ML/HR, ALBUTEROL NEBS QID, BROVANA INHALER BID, LEVAQUIN 750MG IV Q48H, OTBS ACHS, HUMULIN R SLIDING SCALE, ASCORBIC ACID 500MG PO Q6H, ZINC SULFATE 220MG PO DAILY, ELIQUIS 5MG PO BID, FLUVOXAMINE 50MG PO BID, IVERMECTIN 30MG PO DAILY, SOLU-MEDROL 40MG IV Q8H, VITAMIN A 10,000 UNITS PO DAILY, AND HER HOME MEDICATIONS WERE RESUMED. (2) Pneumonia due to COVID-19 virus Status: Acute (3) Altered mental status Status: Acute Qualifiers: Altered mental status type: disorientation Qualified Code(s): R41.0 - Disorientation, unspecified Plan: WE WILL OBTAIN A BRAIN MRI WITH POST CONTRAST IMAGING TODAY PER RADIOLOGIST RECOMMENDATIONS. (4) History of multiple myeloma Status: Chronic
--- NOTE | 2022-02-22 13:54 | CT ---
HISTORYCOVID+, SOB, ELEVATED D-DIMERSTUDYCTA CHESTCOMPARISONNoneTECHNIQUEM pulmonary angiogram protocol was performed after the administration of contrast. 3D MIPS images were performed.CT scan was performed following ALARA (As low as Reasonably Achievable).Coronal and Sagittal reformatted images were performed..FINDINGSThe thyroid gland is not well seen. There is no evidence of axillary or dominant pretracheal adenopathy,there is interval decrease in size of sub carinal lymph node measuring in the current study in short axis 7 millimeters. There is no pleural or pericardial effusions, no adrenal masses, the spleen is nonenlarged,the stomach is not distended. No evidence of pulmonary embolism. The ascending aorta measures approximately 3 centimetersLung windows there is new ground-glass and interstitial radiopacities involving the left lower lobe, patchy in the right lower lobe as well as the inferior left upper lobe consistent with active viral pneumonia, there is also a left perihilar ground-glass radiopacities.Bone windows there is severe osteopenia, there are lytic lesions involving multiple vertebral bodies extending into the pedicles suspicious for metastatic disease a lesion is seen at C5 vertebral body, T2 vertebral body with destruction of the posterior cortex, there is also a focal lesions at T4 with extension along the pedicle, there is a pathologic fracture of T12 with retropulsion of approximately 4 millimeters and mild narrowing of the spinal canal, there is also vertebra plana of L1 with a pathologic fracture and a posterior convex border with 5 millimeters retropulsion and moderate narrowing of the spinal canal.IMPRESSIONNo radiographic evidence of pulmonary embolism.New ground-glass and interstitial radiopacities involving the lower lobes and the left upper lobe left more than rightMultiple lytic bone lesions with a pathologic fracture of T12 and L1 and retropulsion of both of approximately 4 millimeters of L1 and moderate narrowing of the spinal canal. Consider metastatic bone or multiple myelomaElectronically signed by: Leandra Daniel (February 22, 2022 13:52:38)
[2022-02-22] MEDS: NovoLIN R (or HumuLIN R) SC PRN ×2 (17:02→22:07)
[2022-02-22 21:26] LABS: ALANINE AMINOTRANSFERASE 7 Units/L (12-78); ALBUMIN 2.3 g/dL (3.4-5.0); ALKALINE PHOSPHATASE 89 Units/L (46-116); ASPARTATE AMINO TRANSFERASE 16 Units/L (15-37); COR CA(FOR HYPOALB) 9.3 mg/dL (8.5-10.1); TOTAL PROTEIN 5.6 g/dL (6.4-8.2)
[2022-02-22 22:39] LABS: ALBUMIN 2.4 g/dL (3.4-5.0); COR CA(FOR HYPOALB) 9.4 mg/dL (8.5-10.1); TOTAL PROTEIN 5.7 g/dL (6.4-8.2)
[2022-02-23 04:54] LABS: BASOPHILS % (AUTO) 0.2 % (0.2-1.0); HEMATOCRIT 27.6 % (36.0-47.0); HEMOGLOBIN 9.5 g/dL (12.0-16.0); LYMPHOCYTES # (AUTO) 0.2 X10^3/uL (1.3-2.9); MEAN CORPUSCULAR HEMOGLOBIN 33.4 pg (27.0-34.0); MEAN CORPUSCULAR HGB CONC 34.5 g/dL (33.0-35.0); MEAN CORPUSCULAR VOLUME 96.8 fL (80.0-100.0); MEAN PLATELET VOLUME 11.4 fL (7.4-11.0); MONOCYTES # (AUTO) 0.1 x10^3/uL (0.3-0.8); MONOCYTES % (AUTO) 3.2 % (0.0-13.0); NEUTROPHILS % (AUTO) 89.6 % (42.0-75.0); RED BLOOD COUNT 2.85 X10^6/uL (3.5-5.4); RED CELL DISTRIBUTION WIDTH 14.3 % (11.6-16.5); WHITE BLOOD COUNT 3.3 X10^3/uL (3.6-10.0)
[2022-02-23 05:04] LABS: ALANINE AMINOTRANSFERASE 8 Units/L (12-78); ALBUMIN 2.2 g/dL (3.4-5.0); ALKALINE PHOSPHATASE 96 Units/L (46-116); ASPARTATE AMINO TRANSFERASE 12 Units/L (15-37); BLOOD UREA NITROGEN 16 mg/dL (7-18); CALCIUM 7.3 mg/dL (8.5-10.1); CARBON DIOXIDE 21.4 mmol/L (21-32); CHLORIDE 103 mmol/L (98-107); COR CA(FOR HYPOALB) 8.7 mg/dL (8.5-10.1); COR NA(FOR HYPERGLY) 139 mmol/L (136-145); CREATININE 0.96 mg/dL (0.55-1.02); SODIUM 136 mmol/L (136-145); TOTAL PROTEIN 5.7 g/dL (6.4-8.2); eGFR NON BLACK RACES > 60 (>60)
[2022-02-23] MEDS: VITAMIN C PO SCH ×4 (06:04→23:01)
[2022-02-23] MEDS: NovoLIN R (or HumuLIN R) SC PRN ×2 (06:05→16:36)
[2022-02-23] MEDS: SOLU-Medrol 40 MG VIAL IVP SCH ×3 (06:05→21:09)
--- NOTE | 2022-02-23 06:08 | RAD ---
HISTORYShortness of breathSTUDYChest AP [id number]/10/2022 chest x-ray and CTA chestFINDINGSHeart remains enlarged. No congestive heart failure is noted. Right lung and left upper lung rivera appear clear. Infiltrate remains in the retrocardiac area of the left lower lobe. There is a focus of subsegmental atelectasis in the lingula. No pleural effusions are identified. There is a compression fracture of T10.IMPRESSIONNo change mild cardiomegaly without congestive heart failureNo change left lower lobe retrocardiac infiltrateFocus of subsegmental atelectasis lingulaBarely visible compression fracture [id number] signed by: RODGER SANCHEZ (February 23, 2022 06:06:49)
[2022-02-23] MEDS: IVERMECTIN PO SCH (08:01)
[2022-02-23] MEDS: LASIX PO SCH (08:01)
[2022-02-23] MEDS: MICRO K EXTEN CAP 10 MEQ PO SCH (08:01)
[2022-02-23] MEDS: ELIQUIS PO SCH (08:02)
[2022-02-23] MEDS: LUVOX PO SCH (08:02)
[2022-02-23] MEDS: COREG TAB 12.5 MG PO SCH ×2 (08:02→20:05)
[2022-02-23] MEDS: HYZAAR 50/12.5 MG PO SCH (08:02)
[2022-02-23] MEDS: VITAMIN D3 125 mcg (5,000 UNITS) PO SCH (08:03)
[2022-02-23] MEDS: ZINC SULFATE PO SCH (08:03)
[2022-02-23] MEDS: VITAMIN A PO SCH (08:03)
[2022-02-23] MEDS: SYNTHROID 112 mcg TAB PO SCH (08:03)
[2022-02-23] MEDS: PEPCID TAB 40 MG PO SCH ×2 (08:03→20:05)
[2022-02-23] MEDS: REMDESIVIR 100 MG in NS 250 ML IV 250 ML IV SCH (08:32)
[2022-02-23] MEDS: BROVANA IN SCH ×2 (08:35→20:40)
[2022-02-23] MEDS: PROVENTIL NEB TX 0.083% 2.5MG/ 3ML NEB SCH ×4 (08:41→20:40)
[2022-02-23] MEDS: NS 1,000 ML IV 1,000 ML IV SCH ×2 (10:01→23:19)
[2022-02-23] MEDS: LEVAQUIN PREMIX IV 750 MG 750 MG/150 ML BAG IV SCH (10:01)
[2022-02-23] MEDS ORDERED: LANTUS SC ONE (10:43)
--- NOTE | 2022-02-23 12:49 | PCM.PROG ---
Progress Note - Progress Note for Day of Date of Exam: 02/23/22 - Subjective Subjective: IS CURRENTLY OBSERVATION STATUS FOR TREATMENT OF DEHYDRATION, PNEUMONIA DUE TO COVID-19, AND AMS. SHE HAS A PMH OF MULTIPLE MYELOMA WITH RIGHT SKULL LYTIC LESION. SHE CONTINUES TO HAVE A NON-PRODUCTIVE COUGH AND WEAKNESS. HER APPETITE HAS BEEN DECREASED, BUT SHE HAS MANAGED TO EAT A DECENT AMOUNT SINCE YESTERDAY. THE HIGHEST THAT HER TEMPERATUR GOT THROUGHOUT THE NIGHT WAS 99.8. SHE HAS BEEN ON ROOM AIR. SHE HAS BEEN AFEBRILE THROUGHOUT THE NIGHT. ON EXAMINATION TODAY, HEART IS REGULAR IN RATE AND RHYTHM. BILATERAL LUNGS NOTED WITH DIMINISHED LUNG SOUNDS THROUGHOUT. ABDOMEN IS ROUND, SOFT, AND NON-TENDER WITH NORMAL BOWEL SOUNDS NOTED IN ALL QUADRANTS. TRACE LOWER EXTREMITY EDEMA NOTED. HER VITALS THIS MORNING ARE: 97.5-71-18-99%-169/72. LABS WERE OBTAINED. WBC 3.9, RBC 2.63, HGB 9.0, HCT 25.2, PLT COUNT 89, SODIUM 136, POTASSIUM 3.8, CHLORIDE 103, BUN 16, CREATININE 0.96, GLUCOSE 238, CALCIUM 7.3, AST 12, ALT 8, CRP 41, BNP 602, TOTAL PROTEIN 5.7, ALBUMIN 2.2. A CHEST XRAY WAS OBTAINED THIS MORNING AND REVEALED: No change mild cardiomegaly without congestive heart failure. No change left lower lobe retrocardiac infiltrate. Focus of subsegmental atelectasis lingual. Barely visible compression fracture T10. A CHEST CTA WAS OBTAINED YESTERDAY AND REVEALED: No radiographic evidence of pulmonary embolism. New ground-glass and interstitial radiopacities involving the lower lobes and the left upper lobe left more than right. Multiple lytic bone lesions with a pathologic fracture of T12 and L1 and retropulsion of both of approximately 4 millimeters of L1 and moderate narrowing of the spinal canal. Consider metastatic bone or multiple myeloma. WE WILL PASS THESE RESULTS OFF TO , ONCOLOGIST. SHE IS CURRENTLY RECEIVING NS AT 75 ML/HR, REMDESIVIR 100MG IV DAILY, ALBUTEROL NEBS QID, BROVANA INHALER BID, LEVAQUIN 750MG IV Q48H, IVERMECTIN 30MG PO DAILY, SOLU-MEDROL 40MG IV Q8H, VITAMIN A 10,000 UNITS PO DAILY, OTBS ACHS, HUMULIN R SLIDING SCALE, LANTUS 10 UNITS DAILY, ASCORBIC ACID 500MG PO Q6H, ZINC SULFATE 220MG PO DAILY, AND HER HOME MEDICATIONS WERE RESUMED. WE WILL INCREASE LANTUS TO 15 UNITS SC DAILY. OTHERWISE, WE PLAN TO FOLLOW-UP WITH AM LABS AND CHEST XRAY AND CONTINUE TO MONITOR. TIME SPENT ON CLINICAL ASSESSMENT, REVIEWING LABS AND IMAGING, DECISION MAKING, AND DOCUMENTATION GREATER THAN 45 MINUTES. - Past Medical Family Social History Past Med/Fam/Surg Hx: No changes since H&P Allergies: Allergies oxycodone Allergy (Verified 08/07/20 21:00) Sulfa (Sulfonamide Antibiotics) [SULFA] Allergy (Verified 11/18/21 11:17) - Review of Systems ROS: No change since H&P - Vital Signs and I&O's Vital Signs: Temperature 98.2 F Pulse Rate [Left] 58 Pulse Rate 78 Respiratory Rate 18 Blood Pressure [Left Arm] 157/70 Blood Pressure 128/59 O2 Sat by Pulse Oximetry 99 Intake and Output: Intake & Output 02/21/22 02/22/22 02/23/22 02/24/22 11:59 11:59 11:59 11:59 Intake Total 660 / 660 2119 Balance 660 / 660 2119 - Physical Exam Oriented: Person Eyes: Normal Ear: Normal Nose: Normal Throat: Normal Respiratory: Generalized, Diminished Cardiovascular: Normal : Normal Auscultation: Bowel Sounds: Normal Palpation: Normal Tenderness: Normal Skin: Decreased Turgur Musculoskeletal: Normal Psychiatric: Normal Mood Description: Calm Affect: Normal Speech Pattern: Clear, Appropriate - Laboratory and Diagnostics Result Diagrams: 02/23/22 04:05 02/23/22 04:05 Labs: Laboratory WBC 3.3 X10^3/uL (3.6-10.0) L 02/23/22 04:05 RBC 2.85 X10^6/uL (3.5-5.4) L 02/23/22 04:05 Hgb 9.5 g/dL (12.0-16.0) L 02/23/22 04:05 Hct 27.6 % (36.0-47.0) L 02/23/22 04:05 MCV 96.8 fL (80.0-100.0) 02/23/22 04:05 MCH 33.4 pg (27.0-34.0) 02/23/22 04:05 MCHC 34.5 g/dL (33.0-35.0) 02/23/22 04:05 RDW 14.3 % (11.6-16.5) 02/23/22 04:05 Plt Count 88 X10^3/uL (150.0-450.0) L 02/23/22 04:05 Plt Count Comment Decreased (ADEQUATE) A 02/21/22 05:23 MPV 11.4 fL (7.4-11.0) H 02/23/22 04:05 Neut % (Auto) 89.6 % (42.0-75.0) H 02/23/22 04:05 Lymph % (Auto) 7.0 % (21.0-51.0) L 02/23/22 04:05 [place] % (Auto) 3.2 % (0.0-13.0) 02/23/22 04:05 Eos % (Auto) 0.0 % (0.9-2.9) L 02/23/22 04:05 Baso % (Auto) 0.2 % (0.2-1.0) 02/23/22 04:05 Neut # (Auto) 3.0 x10^3/uL (2.2-4.8) 02/23/22 04:05 Lymph # (Auto) 0.2 X10^3/uL (1.3-2.9) L 02/23/22 04:05 [place] # (Auto) 0.1 x10^3/uL (0.3-0.8) L 02/23/22 04:05 Eos # (Auto) 0.0 x10^3/uL (0.0-0.2) 02/23/22 04:05 Baso # (Auto) 0.0 X10^3/uL (0.0-0.1) 02/23/22 04:05 Absolute Nucleated RBC 0.1 /100WBC 02/23/22 04:05 Total Counted 50 02/21/22 05:23 Neutrophils % (Manual) 82 % (39-76) H 02/21/22 05:23 Band Neutrophils % 2 % (0-10) 02/21/22 05:23 Lymphocytes % (Manual) 12 % (13-43) L 02/21/22 05:23 Monocytes % (Manual) 2 % (4-9) L 02/21/22 05:23 Metamyelocytes % 2 02/21/22 05:23 Plt Morphology Comment Normal (NORMAL) 02/21/22 05:23 RBC Morphology Normal (NORMAL) 02/21/22 05:23 ESR 47 MM/HOUR (0-20) H 02/21/22 11:36 D-Dimer 11.84 ug/ml (0.0-0.57) H* 02/22/22 05:24 Sodium 136 mmol/L (136-145) 02/23/22 04:05 Corrected Sodium 139 mmol/L (136-145) 02/23/22 04:05 Potassium 3.8 mmol/L (3.5-5.1) 02/23/22 04:05 Chloride 103 mmol/L (98-107) 02/23/22 04:05 Carbon Dioxide 21.4 mmol/L (21-32) 02/23/22 04:05 BUN 16 mg/dL (7-18) 02/23/22 04:05 Creatinine 0.96 mg/dL (0.55-1.02) 02/23/22 04:05 Est GFR (MDRD) Af Amer > 60 (>60) 02/23/22 04:05 Est GFR (MDRD) Non-Af > 60 (>60) 02/23/22 04:05 Glucose 238 mg/dL (65-99) H 02/23/22 04:05 POC Glucose (mg/dL) 322 mg/dL (65-99) H 02/23/22 10:52 Calcium 7.3 mg/dL (8.5-10.1) L 02/23/22 04:05 Corrected Calcium 8.7 mg/dL (8.5-10.1) 02/23/22 04:05 Magnesium 2.3 mg/dL (1.7-2.9) 02/22/22 05:24 Total Bilirubin 0.30 mg/dL (0.2-1.0) 02/23/22 04:05 AST 12 Units/L (15-37) L 02/23/22 04:05 ALT 8 Units/L (12-78) L 02/23/22 04:05 Alkaline Phosphatase 96 Units/L (46-116) 02/23/22 04:05 Creatine Kinase 69 Units/L (26-192) 02/22/22 05:24 CK-MB (CK-2) 1.1 ng/mL (0-4.0) 02/22/22 05:24 CK/CKMB % Calc 1.6 % (<4) 02/22/22 05:24 Troponin I High Sens 39.3 ng/L (4.0-60.0) 02/22/22 05:24 C-Reactive Protein 41.00 mg/L (0-3.0) H 02/23/22 04:05 B-Natriuretic Peptide 602 pg/mL (0-79) H* 02/23/22 04:05 Total Protein 5.7 g/dL (6.4-8.2) L 02/23/22 04:05 Albumin 2.2 g/dL (3.4-5.0) L 02/23/22 04:05 Globulin 3.5 g/dL (2.5-4.5) 02/23/22 04:05 Albumin/Globulin Ratio 0.6 Ratio (1.1-2.1) L 02/23/22 04:05 Specimen Type Catherized urine 02/21/22 00:06 Urine Color Pale yellow (YELLOW) 02/21/22 00:06 Urine Appearance Clear (CLEAR) 02/21/22 00:06 Urine pH 5.0 (5.0 - 8.0) 02/21/22 00:06 Ur Specific [place] 1.015 (1.000-1.030) 02/21/22 00:06 Urine Protein 2+ (NEGATIVE) 02/21/22 00:06 Urine Glucose (UA) 3+ (NEGATIVE) 02/21/22 00:06 Urine Ketones 2+ (NEGATIVE) 02/21/22 00:06 Urine Blood 1+ (NEGATIVE) 02/21/22 00:06 Urine Nitrite Negative (NEGATIVE) 02/21/22 00:06 Urine Bilirubin Negative (NEGATIVE) 02/21/22 00:06 Urine Urobilinogen Normal (NORMAL) 02/21/22 00:06 Ur Leukocyte Esterase Negative (NEGATIVE) 02/21/22 00:06 Urine RBC None seen /HPF (0-3) 02/21/22 00:06 Urine WBC None seen /HPF (0-5) 02/21/22 00:06 Ur Squamous Epith Cells Rare /HPF (NEGATIVE) 02/21/22 00:06 Amorphous Sediment 1+ /HPF (NEGATIVE) 02/21/22 00:06 Urine Bacteria Negative /HPF (NEGATIVE) 02/21/22 00:06 Ur Culture Indicated? No/not indicated 02/21/22 00:06 SARS-CoV-2 (PCR) Positive (NEGATIVE) A 02/21/22 12:37 SARS-CoV-2 Antigen Positive (NEGATIVE) A 02/21/22 16:15 - Plan (1) Dehydration Status: Acute Plan: D5NS AT 80 ML/HR, ALBUTEROL NEBS QID, BROVANA INHALER BID, LEVAQUIN 750MG IV Q48H, OTBS ACHS, HUMULIN R SLIDING SCALE, LANTUS 15 UNITS SC HS, ASCORBIC A [place] 500MG PO Q6H, ZINC SULFATE 220MG PO DAILY, IVERMECTIN 30MG PO DAILY, SOLU- MEDROL 40MG IV Q8H, VITAMIN A 10,000 UNITS PO DAILY, AND HER HOME MEDICATIONS WERE RESUMED. (2) Pneumonia due to COVID-19 virus Status: Acute (3) Altered mental status Status: Acute Qualifiers: Altered mental status type: disorientation Qualified Code(s): R41.0 - Disorientation, unspecified (4) History of multiple myeloma Status: Chronic
[2022-02-23] MEDS ORDERED: SNACK - Diabetic Appropriate PO SCH (20:00)
[2022-02-24] MEDS: VITAMIN C PO SCH ×2 (05:32→10:45)
[2022-02-24] MEDS: SOLU-Medrol 40 MG VIAL IVP SCH (05:32)
[2022-02-24 05:44] LABS: BASOPHILS % (AUTO) 0.1 % (0.2-1.0); HEMATOCRIT 25.4 % (36.0-47.0); HEMOGLOBIN 8.8 g/dL (12.0-16.0); LYMPHOCYTES # (AUTO) 0.2 X10^3/uL (1.3-2.9); LYMPHOCYTES % (AUTO) 4.4 % (21.0-51.0); MEAN CORPUSCULAR HEMOGLOBIN 33.1 pg (27.0-34.0); MEAN CORPUSCULAR HGB CONC 34.6 g/dL (33.0-35.0); MEAN CORPUSCULAR VOLUME 95.6 fL (80.0-100.0); MEAN PLATELET VOLUME 10.8 fL (7.4-11.0); MONOCYTES # (AUTO) 0.2 x10^3/uL (0.3-0.8); MONOCYTES % (AUTO) 4.7 % (0.0-13.0); NEUTROPHILS # (AUTO) 4.5 x10^3/uL (2.2-4.8); NEUTROPHILS % (AUTO) 90.8 % (42.0-75.0); RED BLOOD COUNT 2.66 X10^6/uL (3.5-5.4); RED CELL DISTRIBUTION WIDTH 14.4 % (11.6-16.5); WHITE BLOOD COUNT 4.9 X10^3/uL (3.6-10.0)
[2022-02-24 05:53] LABS: ALANINE AMINOTRANSFERASE < 6 Units/L (12-78); ALBUMIN 2.1 g/dL (3.4-5.0); ALKALINE PHOSPHATASE 85 Units/L (46-116); ASPARTATE AMINO TRANSFERASE 11 Units/L (15-37); BLOOD UREA NITROGEN 20 mg/dL (7-18); CALCIUM 6.6 mg/dL (8.5-10.1); CARBON DIOXIDE 20.8 mmol/L (21-32); CHLORIDE 103 mmol/L (98-107); COR CA(FOR HYPOALB) 8.1 mg/dL (8.5-10.1); COR NA(FOR HYPERGLY) 138 mmol/L (136-145); CREATININE 0.92 mg/dL (0.55-1.02); SODIUM 136 mmol/L (136-145); TOTAL PROTEIN 5.2 g/dL (6.4-8.2); eGFR NON BLACK RACES > 60 (>60)
[2022-02-24 06:04] LABS: PLATELET MORPHOLOGY COMMENT NORMAL (NORMAL)
--- NOTE | 2022-02-24 07:16 | RAD ---
HISTORYSHORTNESS OF BREATHSTUDYCHEST, 1 [id number]/2022.TECHNIQUEAP view of the chestFINDINGSThe cardiac and mediastinal contours appear stable. Similar mild patchy left base opacity. No definite pleural effusion or pneumothorax. Known bone lesions and pathologic fractures.IMPRESSIONNo significant change in patchy left base opacity suspicious for pneumonia.Electronically signed by: Julian Galicia (February 24, 2022 07:15:46)
[2022-02-24] MEDS: IVERMECTIN PO SCH (08:33)
[2022-02-24] MEDS: K-DUR TAB 20 MEQ PO PRN (08:34)
[2022-02-24] MEDS: HYZAAR 50/12.5 MG PO SCH (08:34)
[2022-02-24] MEDS: ZINC SULFATE PO SCH (08:34)
[2022-02-24] MEDS: PEPCID TAB 40 MG PO SCH (08:35)
[2022-02-24] MEDS: COREG TAB 12.5 MG PO SCH (08:35)
[2022-02-24] MEDS: MICRO K EXTEN CAP 10 MEQ PO SCH (08:35)
[2022-02-24] MEDS: SYNTHROID 112 mcg TAB PO SCH (08:35)
[2022-02-24] MEDS: VITAMIN D3 125 mcg (5,000 UNITS) PO SCH (08:36)
[2022-02-24] MEDS: LASIX PO SCH (08:36)
[2022-02-24] MEDS: VITAMIN A PO SCH (08:37)
[2022-02-24] MEDS ORDERED: LANTUS SC SCH (09:00)
[2022-02-24] MEDS ORDERED: LEVAQUIN PREMIX IV 750 MG 750 MG/150 ML BAG IV SCH (09:00)
[2022-02-24] MEDS: PROVENTIL NEB TX 0.083% 2.5MG/ 3ML NEB SCH (09:22)
[2022-02-24] MEDS: BROVANA IN SCH (09:22)
[2022-02-24] MEDS ORDERED: KETAMINE HCL ONE (09:51)
[2022-02-24] MEDS ORDERED: XYLOCAINE 2 % (PLAIN) ONE (09:51)
[2022-02-24] MEDS ORDERED: REMDESIVIR 100 MG in NS 250 ML IV 250 ML IV ONE (10:04)
[2022-02-24] MEDS: REMDESIVIR 100 MG in NS 250 ML IV 250 ML IV SCH (10:45)
[2022-02-24] MEDS: NovoLIN R (or HumuLIN R) SC PRN (11:46)
[2022-02-24] MEDS: NS 1,000 ML IV 1,000 ML IV SCH (13:42)
[2022-02-24 14:36] VITALS: BP 183/86
== END 2022-02-24 13:45 | disposition home or self-care (01) ==
LOC: MED/SURG 23:14 → ER 23:14 → MED/SURG 02-21 04:07
PROVIDERS: ADMIT Internal Medicine; ATTEND Internal Medicine
DX: Z85.79 Personal history of other malignant neoplasms of lymphoid, hematopoietic and related tissues; U07.1 COVID-19; J12.82 Pneumonia due to coronavirus disease 2019; G40.802 Other epilepsy, not intractable, without status epilepticus; I10 Essential (primary) hypertension; Z95.818 Presence of other cardiac implants and grafts; M84.48XA Pathological fracture, other site, initial encounter for fracture; E86.0 Dehydration; R79.1 Abnormal coagulation profile; R06.02 Shortness of breath; E11.9 Type 2 diabetes mellitus without complications; R41.0 Disorientation, unspecified; R93.0 Abnormal findings on diagnostic imaging of skull and head, not elsewhere classified; R26.81 Unsteadiness on feet